=== PATIENT | female | born 1990 | race African-American/Black ===

== ENCOUNTER 2017-02-27 22:20 | Emergency (ER) | payer OTHER ==
[~2017-02-27] VITALS: Ht 162.6 cm; Wt 61.4 kg
[2017-02-27] MEDS ORDERED: DiphenhydrAMINE HCL 25 MG CAPSULE PO ONE (23:00)
[2017-02-27] MEDS ORDERED: IBUPROFEN 600 MG TABLET PO ONE (23:00)
[2017-02-27 23:45] VITALS: BP 122/70
== END 2017-02-27 23:47 | disposition home or self-care (01) ==
LOC: EMS 22:23
DX: S40.261A Insect bite (nonvenomous) of right shoulder, initial encounter (principal); S50.862A Insect bite (nonvenomous) of left forearm, initial encounter; S50.861A Insect bite (nonvenomous) of right forearm, initial encounter; S80.862A Insect bite (nonvenomous), left lower leg, initial encounter; S80.861A Insect bite (nonvenomous), right lower leg, initial encounter; W57.XXXA Bitten or stung by nonvenomous insect and other nonvenomous arthropods, initial encounter; Y93.89 Activity, other specified; Y92.89 Other specified places as the place of occurrence of the external cause; Y99.8 Other external cause status
CPT/HCPCS: 99283